=== PATIENT | male | born 1955 | race Hispanic/Latino ===

== ENCOUNTER 2017-10-29 10:39 | Inpatient (IN) | payer MEDICARE ==
[2017-10-29] MEDS ORDERED: NACL 0.9% 500 ML 500 ML IV ONE ×3 (11:35→16:00)
[2017-10-29 12:48] LABS: Basophils % (Auto) 0.2 % (0.0-1.8); Eosinophils # (Auto) 0.1 K/mm3 (0.0-0.4); Eosinophils % (Auto) 0.8 % (0.0-4.3); Hematocrit 33.8 % (35.5-45.6); Hemoglobin 11.1 gm/dl (11.8-15.2); Lymphocytes # (Auto) 0.8 K/mm3 (1.2-5.4); Lymphocytes % (Auto) 7.8 % (13.4-35.0); Mean Corpuscular HGB Conc 33 % (32-34); Mean Corpuscular Hemoglobin 30 pg (28-32); Mean Corpuscular Volume 91 fl (84-94); Monocytes # (Auto) 0.5 K/mm3 (0.0-0.8); Monocytes % (Auto) 5.4 % (0.0-7.3); Platelet Count 256 K/mm3 (140-440); Red Blood Count 3.72 M/mm3 (3.65-5.03); Red Cell Distribution Width 14.2 % (13.2-15.2)
[2017-10-29 12:58] LABS: INR 1.11 (0.87-1.13)
[2017-10-29 12:59] LABS: Partial Thromboplastin Time 26.9 Sec. (24.2-36.6)
[2017-10-29 13:00] LABS: Albumin 3.5 g/dL (3.9-5); Calcium 9.3 mg/dL (8.4-10.2)
[2017-10-29] MEDS ORDERED: D5/0.45NS 1,000 ML IV SCH (13:00)
[2017-10-29] MEDS ORDERED: FLUTICASONE FUROATE INHALATION PRN (13:40)
[2017-10-29] MEDS: FLAGYL 500 MG/100 ML 500 MG/100 ML BAG IV SCH ×2 (13:44→23:14)
[2017-10-29] MEDS ORDERED: LOVENOX SUB-Q SCH ×2 (14:00)
--- NOTE | 2017-10-29 14:30 | History and Physical Report ---
History of Present Illness Date of examination: 10/29/17 Date of admission: 10/29/17 11:19 Medications and Allergies Allergies Allergy/AdvReac Type Severity Reaction Status Date / Time Penicillins AdvReac Unknown Verified 10/29/17 10:43 Home Medications Medication Instructions Recorded Confirmed Last Taken Type Acetaminophen 650 mg PO Q12H PRN 10/29/17 10/29/17 10/28/17 History Apixaban [Eliquis] 5 mg PO BID 10/29/17 10/29/17 10/28/17 History AtorvaSTATin 20 mg PO QHS 10/29/17 10/29/17 10/28/17 History Cholecalciferol Vit D3 50,000 units PO DAILY 10/29/17 10/29/17 10/28/17 History Desyrel 50 mg PO QHS 10/29/17 10/29/17 10/28/17 History Escitalopram Oxalate [Lexapro] 20 mg PO DAILY 10/29/17 10/29/17 10/28/17 History Fluticasone Furoate [Flonase 1 spray INHALATION DAILY PRN 10/29/17 10/29/1708/10 History Sensimist] Furosemide [Lasix TAB] 40 mg PO BID 10/29/17 10/29/17 10/28/17 History HYDROcodone/APAP 7.5-325 [[place] 1 tab PO Q6H PRN 10/29/17 10/29/17 10/28/17 History 7.5-325 mg TAB] Lopressor TAB 50 mg PO BID 10/29/17 10/29/17 10/28/17 History Losartan Potassium 100 mg PO DAILY 10/29/17 10/29/17 10/28/17 History Miralax 3350 17 gm PO DAILY PRN 10/29/17 10/29/17 10/28/17 History Multivit,Stress Formula/Zinc 1 tab PO DAILY 10/29/17 10/29/17 10/28/17 History [Stress Formula with Zinc Tab] Omeprazole Magnesium 20 mg PO DAILY 10/29/17 10/29/17 10/28/17 History Potassium Chloride 20 meq PO DAILY 10/29/17 10/29/17 10/28/17 History Pregabalin [Lyrica] 75 mg PO BID 10/29/17 10/29/17 10/28/17 History Zofran TAB 4 mg PO Q8H PRN 10/29/17 10/29/17 10/28/17 History metFORMIN [Glucophage] 1,000 mg PO BID 10/29/17 10/29/17 10/28/17 History Active Meds: Active Medications Enoxaparin Sodium (Lovenox) 30 mg SUB-Q QDAY [facility] Famotidine (Pepcid) 20 mg IV QDAY [facility] Metronidazole (Flagyl 500 Mg/100 Ml) 500 mg in 100 mls @ 100 mls/hr IV Q8HR [facility] ; Protocol Last Admin: 10/29/17 13:44 Dose: 100 mls/hr Dextrose/Sodium Chloride (D5/0.45ns) 1,000 mls @ 150 mls/hr IV DIRECT [facility] Miscellaneous Medication (Fluticasone Furoate [Flonase Sensimist]) 1 spray INHALATION DAILY PRN PRN Reason: Congestion Results - Labs CBC & Chem 7: 10/29/17 12:05 10/29/17 12:05 Labs: Abnormal lab results 10/29/17 10/29/17 10/29/17 Range/Units 11:44 12:05 12:05 Hgb 11.1 L (11.8-15.2) gm/dl Hct 33.8 L (35.5-45.6) % Lymph % (Auto) 7.8 L (13.4-35.0) % Lymph # 0.8 L (1.2-5.4) K/mm3 Seg Neutrophils % 85.8 H (40.0-70.0) % Seg Neutrophils # 8.4 H (1.8-7.7) K/mm3 Chloride 97.6 L (98-107) mmol/L BUN 60 H (9-20) mg/dL Creatinine 4.5 H (0.8-1.5) mg/dL Glucose 108 H (75-100) mg/dL POC Glucose 129 H (70-105) Magnesium 1.50 L (1.7-2.3) mg/dL Total Protein 6.2 L (6.3-8.2) g/dL Albumin 3.5 L (3.9-5) g/dL
[2017-10-29] MEDS: PEPCID IV SCH (16:00)
[2017-10-29] MEDS: D5/0.45NS 1,000 ML IV SCH ×2 (16:02→23:13)
[2017-10-29] MEDS ORDERED: [UNRECOGNIZED DRUG - OTHER] PO PRN (17:23)
[2017-10-29] MEDS ORDERED: ZINC PO SCH (17:30)
[2017-10-29] MEDS ORDERED: CHOLECALCIFEROL PO SCH (17:30)
[2017-10-29] MEDS ORDERED: NON-FORMULARY (Escitalopram Oxalate [Lexapro] 20 MG) PO SCH (17:30)
[2017-10-29] MEDS ORDERED: MULTIVIT STRESS FORMULA PO SCH (17:30)
[2017-10-29] MEDS ORDERED: NON-FORMULARY (Losartan Potassium [Losartan Potassium] 100 MG) PO SCH (17:30)
[2017-10-29] MEDS ORDERED: MIRALAX 3350 PO PRN (17:50)
--- NOTE | 2017-10-29 20:01 | History and Physical Report ---
History of Present Illness Date of examination: 10/29/17 Date of admission: 10/29/17 11:19 Chief complaint: Watery diarrhea 2days History of present illness: Patient is a 61-year-old gentleman who is mentally challenged and lives a in a the personal group home was brought to my office today by his caregivers because of profuse watery diarrhea for 2 days. While in my office, patient started shaking all over. Having difficulty in ambulating as he was too weak. SBP wasin the 90s. Directed admission was ordered. EMS was called in. Patient is unable to give any history. Caregivers were not available at time of this evaluation. Initial laboratory studies in hospital showed a BUN of 60 and creatinine of 4.5. No baseline data available to compare with the current data. Glucose was elevated at 129 and 148 respectively. Magnesium was 1.5 and albumin was 3.5. Patient was commenced on 1 L of normal saline bolus as he obviously has acute renal failure with normal. Urinalysis and kidney ultrasounds were ordered. Nephrology consult obtained. Past History Past Medical History: other (mental retardation) Social history: denies: smoking, alcohol abuse, prescription drug abuse Family history: no significant family history Medications and Allergies Allergies Allergy/AdvReac Type Severity Reaction Status Date / Time Penicillins AdvReac Unknown Verified 10/29/17 10:43 Home Medications Medication Instructions Recorded Confirmed Last Taken Type Acetaminophen 650 mg PO Q12H PRN 10/29/17 10/29/17 10/28/17 History Apixaban [Eliquis] 5 mg PO BID 10/29/17 10/29/17 10/28/17 History AtorvaSTATin 20 mg PO QHS 10/29/17 10/29/17 10/28/17 History Cholecalciferol Vit D3 50,000 units PO DAILY 10/29/17 10/29/17 10/28/17 History Desyrel 50 mg PO QHS 10/29/17 10/29/17 10/28/17 History Escitalopram Oxalate [Lexapro] 20 mg PO DAILY 10/29/17 10/29/17 10/28/17 History Fluticasone Furoate [Flonase 1 spray INHALATION DAILY PRN 10/29/17 10/29/1708/10 History Sensimist] Furosemide [Lasix TAB] 40 mg PO BID 10/29/17 10/29/17 10/28/17 History HYDROcodone/APAP 7.5-325 [[place] 1 tab PO Q6H PRN 10/29/17 10/29/17 10/28/17 History 7.5-325 mg TAB] Lopressor TAB 50 mg PO BID 10/29/17 10/29/17 10/28/17 History Losartan Potassium 100 mg PO DAILY 10/29/17 10/29/17 10/28/17 History Miralax 3350 17 gm PO DAILY PRN 10/29/17 10/29/17 10/28/17 History Multivit,Stress Formula/Zinc 1 tab PO DAILY 10/29/17 10/29/17 10/28/17 History [Stress Formula with Zinc Tab] Omeprazole Magnesium 20 mg PO DAILY 10/29/17 10/29/17 10/28/17 History Potassium Chloride 20 meq PO DAILY 10/29/17 10/29/17 10/28/17 History Pregabalin [Lyrica] 75 mg PO BID 10/29/17 10/29/17 10/28/17 History Zofran TAB 4 mg PO Q8H PRN 10/29/17 10/29/17 10/28/17 History metFORMIN [Glucophage] 1,000 mg PO BID 10/29/17 10/29/17 10/28/17 History Active Meds: Active Medications Acetaminophen/Hydrocodone Bitart ([place] 7.5/325) 1 each PO Q6H PRN PRN Reason: Pain , Severe (7-10) Apixaban (Eliquis) 5 mg PO BID [facility]; Protocol Atorvastatin Calcium (Lipitor) 20 mg PO QHS [facility] Ergocalciferol (Vitamin D2) 50,000 unit PO Adames [facility] Escitalopram Oxalate (Lexapro) 20 mg PO DAILY [facility] Famotidine (Pepcid) 20 mg IV QDAY ERI[facility] Last Admin: 10/29/17 16:00 Dose: 20 mg Fluticasone Propionate (Flonase) 100 mcg NS QDAY PRN PRN Reason: NASAL ALLERGY Furosemide (Lasix) 40 mg PO BID [facility] Metronidazole (Flagyl 500 Mg/100 Ml) 500 mg in 100 mls @ 100 mls/hr IV Q8HR [facility] ; Protocol Last Admin: 10/29/17 13:44 Dose: 100 mls/hr Dextrose/Sodium Chloride (D5/0.45ns) 1,000 mls @ 150 mls/hr IV DIRECT ERIK Last Admin: 10/29/17 16:02 Dose: 150 mls/hr Losartan Potassium (Cozaar) 100 mg PO QDAY [facility] Metoprolol Tartrate (Lopressor) 50 mg PO BID [facility] Multivitamins (Theragran Tab) 1 each PO DAILY [facility] Polyethylene Glycol (Miralax 3350) 17 gm PO QDAY PRN PRN Reason: Constipation Pregabalin (Lyrica) 75 mg PO BID [facility] Trazodone HCl (Desyrel) 50 mg PO QHS [facility] Review of Systems ROS unobtainable: due to mental status Exam - Physical Exam Narrative exam: Constitutional: Obese. Mentally challenged. Well-nourished well-developed. In no distress Head: Normocephalic atraumatic Eyes: Pupils are equal round and reactive to light Nose: No enlarged turbinates, no septal deviation. Mouth: Moist mucous membranes. Neck: Supple no thyromegaly. No bruit. No JVD Heart: Regular rate and rhythm, S1-S2 abnormal. No rubs murmurs or gallop Lungs: Clear to auscultation bilaterally no rales or rhonchi Abdomen: Soft, nontender. Bowel sound are present. Extremities: No edema no cyanosis and no clubbing. Neuro: Alert oriented Oriented x3. No focal sensory or motor deficit. Skin: Cellulitis lower extremities .stages 1-2 sacral decubitus ulcers. Psychiatry: Euthymic. Calm. - Constitutional Vitals: Temp Pulse Resp BP Pulse Ox 98.5 F 68 20 97/40 100 10/29/17 17:28 10/29/17 17:28 10/29/17 17:28 10/29/17 17:28 10/29/17 17:28 Results - Labs CBC & Chem 7: 10/29/17 12:05 10/29/17 12:05 Labs: Abnormal lab results 10/29/17 10/29/17 10/29/17 Range/Units 11:44 12:05 12:05 Hgb 11.1 L (11.8-15.2) gm/dl Hct 33.8 L (35.5-45.6) % Lymph % (Auto) 7.8 L (13.4-35.0) % Lymph # 0.8 L (1.2-5.4) K/mm3 Seg Neutrophils % 85.8 H (40.0-70.0) % Seg Neutrophils # 8.4 H (1.8-7.7) K/mm3 Chloride 97.6 L (98-107) mmol/L BUN 60 H (9-20) mg/dL Creatinine 4.5 H (0.8-1.5) mg/dL Glucose 108 H (75-100) mg/dL POC Glucose 129 H (70-105) Magnesium 1.50 L (1.7-2.3) mg/dL Total Protein 6.2 L (6.3-8.2) g/dL Albumin 3.5 L (3.9-5) g/dL 10/29/17 Range/Units 16:50 Hgb (11.8-15.2) gm/dl Hct (35.5-45.6) % Lymph % (Auto) (13.4-35.0) % Lymph # (1.2-5.4) K/mm3 Seg Neutrophils % (40.0-70.0) % Seg Neutrophils # (1.8-7.7) K/mm3 Chloride (98-107) mmol/L BUN (9-20) mg/dL Creatinine (0.8-1.5) mg/dL Glucose (75-100) mg/dL POC Glucose 142 H (70-105) Magnesium (1.7-2.3) mg/dL Total Protein (6.3-8.2) g/dL Albumin (3.9-5) g/dL Assessment and Plan Admit med - Acute Renal Failure, with prerenal azoteemia Obtain UA, Renal US iv hydration Cautiously Given pt's med list it seem pt had a history of CHF Will check BNP Cellulitis both LE iv cefapine - Possible h/o chf Obtain BMP. Continue beta blockers, Hold ACEI and diuretics because of acute renal failure.
[2017-10-29] MEDS ORDERED: LOPRESSOR 50 MG PO SCH (22:00)
[2017-10-29] MEDS ORDERED: NON-FORMULARY (Atorvastatin 20 MG) PO SCH (22:00)
[2017-10-29] MEDS ORDERED: DESYREL 50 MG PO SCH (22:00)
[2017-10-29] MEDS: LYRICA PO SCH (23:17)
[2017-10-29] MEDS: DESYREL PO SCH (23:17)
[2017-10-29] MEDS: ELIQUIS PO SCH (23:17)
[2017-10-29] MEDS: LASIX PO SCH (23:18)
[2017-10-29] MEDS: LEXAPRO PO SCH (23:19)
[2017-10-29] MEDS: COZAAR PO SCH (23:20)
[2017-10-29] MEDS: LOPRESSOR PO SCH (23:22)
[2017-10-30 00:36] LABS: Bilirubin,Urine NEG (Negative); Blood,Urine NEG (Negative); Color,Urine Yellow (Yellow); Mucus,Urine FEW /HPF; Protein,Urine <15 mg/dL mg/dL (Negative); RBC,Urine < 1.0 /HPF (0.0-6.0); Urobilinogen,Urine < 2.0 mg/dL (<2.0)
[2017-10-30] MEDS: FLAGYL 500 MG/100 ML 500 MG/100 ML BAG IV SCH ×3 (05:55→21:49)
--- NOTE | 2017-10-30 07:32 | Ultrasound Report ---
FINAL REPORT PROCEDURE: US RENAL BILAT TECHNIQUE: Real-time sonography in multiple planes of the kidneys, ureters and urinary bladder was performed with image documentation. CPT 72914 HISTORY: acute renal failure COMPARISON: No prior studies are available for comparison. FINDINGS: RIGHT kidney: Normal echotexture. No focal renal mass, calculus, or hydronephrosis. Length: 10.8 cm. LEFT kidney: Normal echotexture. No focal renal mass, calculus, or hydronephrosis. Length: 11.8cm. Bladder: Normal. IMPRESSION: Normal Examination.
--- NOTE | 2017-10-30 08:14 | XRay Report ---
Chest 2 views: History: Heart failure, shortness of breath. Findings: Normal cardiomediastinal silhouette the trachea is midline. Minimal blunting of the right and left CP angle from pleural thickening. Linear densities right lower lobe suggestive discoid atelectasis or pleural thickening along the horizontal fissure. Impression: No acute lung changes. Findings as detailed above.
[2017-10-30 09:01] LABS: Calcium 8.9 mg/dL (8.4-10.2)
--- NOTE | 2017-10-30 09:14 | Progress Note ---
Assessment and Plan - Acute Renal Failure, with prerenal azoteemia Obtain UA, Renal US iv hydration Cautiously Given pt's med list it seem pt had a history of CHF Will check BNP - Cellulitis both LE iv cefapime - Sacral decubitous ulcer - Possible h/o chf Obtain BNP. Continue beta blockers, Hold ACEI and diuretics because of acute renal failure. Subjective Date of service: 10/30/17 Principal diagnosis: Acute renal failure, Interval history: Pt seen and examine. in no acute distress. No fever Objective - Exam Narrative Exam: Constitutional: Obese. Mentally challenged. Well-nourished well-developed. In no distress Head: Normocephalic atraumatic Eyes: Pupils are equal round and reactive to light Nose: No enlarged turbinates, no septal deviation. Mouth: Moist mucous membranes. Neck: Supple no thyromegaly. No bruit. No JVD Heart: Regular rate and rhythm, S1-S2 abnormal. No rubs murmurs or gallop Lungs: Clear to auscultation bilaterally no rales or rhonchi Abdomen: Soft, nontender. Bowel sound are present. Extremities: No edema no cyanosis and no clubbing. Neuro: Alert oriented Oriented x3. No focal sensory or motor deficit. Skin: Cellulitis lower extremities. stages 1-2 sacral decubitous ulcers. Psychiatry: Euthymic. Calm. - Constitutional Vitals: Vital Signs - 12hr 10/29/17 10/29/17 10/29/17 23:05 23:20 23:22 Temperature Pulse Rate 64 64 64 Respiratory Rate Blood Pressure 91/42 91/42 Blood Pressure 91/42 [Left] O2 Sat by Pulse Oximetry 10/29/17 10/30/17 23:29 05:57 Temperature 97.9 F 97.6 F Pulse Rate 65 64 Respiratory 18 18 Rate Blood Pressure 100/42 105/48 Blood Pressure [Left] O2 Sat by Pulse 98 96 Oximetry - Labs CBC & Chem 7: 10/29/17 12:05 10/30/17 08:26 Labs: Abnormal lab results 10/29/17 10/29/17 10/29/17 Range/Units 11:44 12:05 12:05 Hgb 11.1 L (11.8-15.2) gm/dl Hct 33.8 L (35.5-45.6) % Lymph % (Auto) 7.8 L (13.4-35.0) % Lymph # 0.8 L (1.2-5.4) K/mm3 Seg Neutrophils % 85.8 H (40.0-70.0) % Seg Neutrophils # 8.4 H (1.8-7.7) K/mm3 Chloride 97.6 L (98-107) mmol/L BUN 60 H (9-20) mg/dL Creatinine 4.5 H (0.8-1.5) mg/dL Glucose 108 H (75-100) mg/dL POC Glucose 129 H (70-105) Magnesium 1.50 L (1.7-2.3) mg/dL Total Protein 6.2 L (6.3-8.2) g/dL Albumin 3.5 L (3.9-5) g/dL 10/29/17 10/29/17 10/30/17 Range/Units 16:50 21:41 08:26 Hgb (11.8-15.2) gm/dl Hct (35.5-45.6) % Lymph % (Auto) (13.4-35.0) % Lymph # (1.2-5.4) K/mm3 Seg Neutrophils % (40.0-70.0) % Seg Neutrophils # (1.8-7.7) K/mm3 Chloride (98-107) mmol/L BUN 48 H (9-20) mg/dL Creatinine 2.9 H (0.8-1.5) mg/dL Glucose 103 H (75-100) mg/dL POC Glucose 142 H 122 H (70-105) Magnesium (1.7-2.3) mg/dL Total Protein (6.3-8.2) g/dL Albumin (3.9-5) g/dL 10/30/17 Range/Units 08:52 Hgb (11.8-15.2) gm/dl Hct (35.5-45.6) % Lymph % (Auto) (13.4-35.0) % Lymph # (1.2-5.4) K/mm3 Seg Neutrophils % (40.0-70.0) % Seg Neutrophils # (1.8-7.7) K/mm3 Chloride (98-107) mmol/L BUN (9-20) mg/dL Creatinine (0.8-1.5) mg/dL Glucose (75-100) mg/dL POC Glucose 112 H (70-105) Magnesium (1.7-2.3) mg/dL Total Protein (6.3-8.2) g/dL Albumin (3.9-5) g/dL
--- NOTE | 2017-10-30 10:43 | Consultation ---
History of Present Illness - Reason for Consult Consult date: 10/30/17 acute renal failure Requesting physician: PAUL MERCER - History of Present Illness This is a 61yo M with PMHs of mental illness, lives a in a the personal fdc, who presented to the ER after was seen at his PCP's ( Dr Mercer) office on 10/29 for complaints of profuse watery diarrhea for 2 days. pt was noted to be hypotensive with SBP in the 90s and pt was admitted directly for IVF therapy. Initial labs showed a BUN/Cr of 60/4.5 for which renal consult is requested. Pt does not report any h/o previous CKD, no recent NSAIDs or IV exposure reported. Past History Past Medical History: other (mental retardation) Social history: denies: smoking, alcohol abuse, prescription drug abuse Family history: no significant family history Medications and Allergies Allergies Allergy/AdvReac Type Severity Reaction Status Date / Time Penicillins AdvReac Unknown Verified 10/29/17 10:43 Home Medications Medication Instructions Recorded Confirmed Last Taken Type Acetaminophen 650 mg PO Q12H PRN 10/29/17 10/29/17 10/28/17 History Apixaban [Eliquis] 5 mg PO BID 10/29/17 10/29/17 10/28/17 History AtorvaSTATin 20 mg PO QHS 10/29/17 10/29/17 10/28/17 History Cholecalciferol Vit D3 50,000 units PO DAILY 10/29/17 10/29/17 10/28/17 History Desyrel 50 mg PO QHS 10/29/17 10/29/17 10/28/17 History Escitalopram Oxalate [Lexapro] 20 mg PO DAILY 10/29/17 10/29/17 10/28/17 History Fluticasone Furoate [Flonase 1 spray INHALATION DAILY PRN 10/29/17 10/29/1708/10 History Sensimist] Furosemide [Lasix TAB] 40 mg PO BID 10/29/17 10/29/17 10/28/17 History HYDROcodone/APAP 7.5-325 [[place] 1 tab PO Q6H PRN 10/29/17 10/29/17 10/28/17 History 7.5-325 mg TAB] Lopressor TAB 50 mg PO BID 10/29/17 10/29/17 10/28/17 History Losartan Potassium 100 mg PO DAILY 10/29/17 10/29/17 10/28/17 History Miralax 3350 17 gm PO DAILY PRN 10/29/17 10/29/17 10/28/17 History Multivit,Stress Formula/Zinc 1 tab PO DAILY 10/29/17 10/29/17 10/28/17 History [Stress Formula with Zinc Tab] Omeprazole Magnesium 20 mg PO DAILY 10/29/17 10/29/17 10/28/17 History Potassium Chloride 20 meq PO DAILY 10/29/17 10/29/17 10/28/17 History Pregabalin [Lyrica] 75 mg PO BID 10/29/17 10/29/17 10/28/17 History Zofran TAB 4 mg PO Q8H PRN 10/29/17 10/29/17 10/28/17 History metFORMIN [Glucophage] 1,000 mg PO BID 10/29/17 10/29/17 10/28/17 History Active Meds: Active Medications Acetaminophen/Hydrocodone Bitart ([place] 7.5/325) 1 each PO Q6H PRN PRN Reason: Pain , Severe (7-10) Apixaban (Eliquis) 5 mg PO BID [facility]; Protocol Last Admin: 10/29/17 23:17 Dose: 5 mg Atorvastatin Calcium (Lipitor) 20 mg PO QHS [facility] Last Admin: 10/29/17 23:14 Dose: 20 mg Ergocalciferol (Vitamin D2) 50,[address] [facility] Escitalopram Oxalate (Lexapro) 20 mg PO DAILY [facility] Last Admin: 10/29/17 23:19 Dose: Not Given Famotidine (Pepcid) 20 mg IV QDAY [facility] Last Admin: 10/29/17 16:00 Dose: 20 mg Fluticasone Propionate (Flonase) 100 mcg NS QDAY PRN PRN Reason: NASAL ALLERGY Furosemide (Lasix) 40 mg PO BID [facility] Last Admin: 10/29/17 23:18 Dose: 40 mg Metronidazole (Flagyl 500 Mg/100 Ml) 500 mg in 100 mls @ 100 mls/hr IV Q8HR [facility] ; Protocol Last Admin: 10/30/17 05:55 Dose: 100 mls/hr Dextrose/Sodium Chloride (D5/0.45ns) 1,000 mls @ 75 mls/hr IV DIRECT [facility] Losartan Potassium (Cozaar) 100 mg PO QDAY [facility] Last Admin: 10/29/17 23:20 Dose: Not Given Metoprolol Tartrate (Lopressor) 50 mg PO BID [facility] Last Admin: 10/29/17 23:22 Dose: Not Given Multivitamins (Theragran Tab) 1 each PO DAILY [facility] Polyethylene Glycol (Miralax 3350) 17 gm PO QDAY PRN PRN Reason: Constipation Pregabalin (Lyrica) 75 mg PO BID [facility] Last Admin: 10/29/17 23:17 Dose: 75 mg Trazodone HCl (Desyrel) 50 mg PO QHS [facility] Last Admin: 10/29/17 23:17 Dose: 50 mg Exam - Vital Signs Vital signs: Vital Signs Temp Pulse Resp BP Pulse Ox 98.1 F 75 20 85/36 90 10/29/17 12:04 10/29/17 12:04 10/29/17 12:04 10/29/17 12:04 10/29/17 12:04 - General Appearance General appearance: well-developed, well-nourished, appears stated age, obese EENT: ATNC, PERRL, mucous membranes moist Neck: Present: neck supple Respiratory: Clear to Ascultation Heart: regular, S1S2 Gastrointestinal: Present: normoactive bowel sounds Integumentary: no rash, other (no edema ) Neurologic: no focal deficit, alert and oriented x3, strength 5/5, CN 3-12 intact Psychiatric: mood/affect appropriate, cooperative Results - Lab Results 10/29/17 12:05 10/30/17 08:26 Most recent lab results Calcium 8.9 mg/dL (8.4-10.2) 10/30/17 08:26 Phosphorus 4.20 mg/dL (2.5-4.5) 10/29/17 12:05 Magnesium 1.50 mg/dL (1.7-2.3) L 10/29/17 12:05 Assessment and Plan - Patient Problems (1) Acute kidney injury Current Visit: Yes Status: Acute Plan to address problem: suspect pre-renal azotemia in the setting of volume depletion/hypotension. ATN cannot be ruled out. Urine studies show no evidence of hematuria/proteinuria, renal US unremarkable. AVoid nephrotoxins, NSAIDs, IV contrast Cr trending down on IVF, cont d51/2 at 75ml/hr will monitor lytes and renal parameters closely and make further recommendations (2) Dehydration Current Visit: Yes Status: Acute Plan to address problem: cont IVF (3) Diarrhea Current Visit: Yes Status: Acute Plan to address problem: check stool Cx, O&P, leukocytes (4) Hypotension Current Visit: Yes Status: Acute Plan to address problem: hold BP meds, cont IVF
[2017-10-30] MEDS: COZAAR PO SCH (11:17)
[2017-10-30] MEDS: LOPRESSOR PO SCH ×2 (11:18→21:48)
[2017-10-30] MEDS: LEXAPRO PO SCH (11:19)
[2017-10-30] MEDS: LYRICA PO SCH ×2 (11:20→21:50)
[2017-10-30] MEDS: PEPCID IV SCH (11:21)
[2017-10-30] MEDS: LASIX PO SCH ×2 (11:21→21:48)
[2017-10-30] MEDS: THERAGRAN Tab PO SCH (11:21)
[2017-10-30] MEDS: ELIQUIS PO SCH ×2 (11:21→21:48)
[2017-10-30] MEDS: FLONASE NS PRN ×2 (14:19→16:41)
[2017-10-30] MEDS: D5/0.45NS 1,000 ML IV SCH (16:42)
[2017-10-30] MEDS: DESYREL PO SCH (21:47)
[2017-10-30] MEDS: NORCO 7.5/325 PO PRN (21:49)
[2017-10-31] MEDS: D5/0.45NS 1,000 ML IV SCH ×2 (06:53→21:05)
[2017-10-31] MEDS: FLAGYL 500 MG/100 ML 500 MG/100 ML BAG IV SCH (06:53)
[2017-10-31] MEDS: NORCO 7.5/325 PO PRN (09:22)
[2017-10-31] MEDS: THERAGRAN Tab PO SCH (09:23)
[2017-10-31] MEDS: LYRICA PO SCH ×2 (09:23→21:03)
[2017-10-31] MEDS: COZAAR PO SCH (09:23)
[2017-10-31] MEDS: ELIQUIS PO SCH ×2 (09:23→21:03)
[2017-10-31] MEDS: LEXAPRO PO SCH (09:23)
[2017-10-31] MEDS: LOPRESSOR PO SCH ×2 (09:23→22:33)
[2017-10-31] MEDS: LASIX PO SCH (09:24)
[2017-10-31] MEDS: FLONASE NS PRN (09:24)
[2017-10-31] MEDS: PEPCID PO SCH (09:24)
--- NOTE | 2017-10-31 12:02 | Progress Note ---
Assessment and Plan - Patient Problems (1) Acute kidney injury Current Visit: Yes Status: Acute Plan to address problem: KAILEE due to pre-renal azotemia in the setting of volume depletion/hypotension. Urine studies show no evidence of hematuria/proteinuria, renal US unremarkable. renal function improving on IVF Avoid nephrotoxins, NSAIDs, IV contrast (2) Dehydration Current Visit: Yes Status: Acute Plan to address problem: cont IVF (3) Diarrhea Current Visit: Yes Status: Acute Plan to address problem: check stool Cx, O&P, leukocytes (4) Hypotension Current Visit: Yes Status: Acute Plan to address problem: hold BP meds, cont IVF Subjective Date of service: 10/31/17 Principal diagnosis: Acute renal failure, Interval history: Pt awake ,alert, in NAD Objective - Vital Signs Vital signs: Vital Signs - 12hr 10/31/17 05:51 Temperature 97.9 F Pulse Rate 60 Respiratory 16 Rate Blood Pressure 111/46 O2 Sat by Pulse 97 Oximetry - General Appearance General appearance: well-developed, well-nourished, appears stated age EENT: ATNC, PERRL, mucous membranes moist Neck: no JVD Respiratory: Present: Clear to Ascultation Cardiology: regular, S1S2 Gastrointestinal: normoactive bowel sounds Integumentary: no rash, other (no edema ) Neurologic: no focal deficit, alert and oriented x3, strength 5/5, CN 3-12 intact Psychiatric: mood/affect appropriate, cooperative - Lab 10/29/17 12:05 10/31/17 09:22 Most recent lab results Calcium 9.0 mg/dL (8.4-10.2) 10/31/17 09:22 Phosphorus 4.20 mg/dL (2.5-4.5) 10/29/17 12:05 Magnesium 1.50 mg/dL (1.7-2.3) L 10/29/17 12:05
--- NOTE | 2017-10-31 12:39 | Progress Note ---
Assessment and Plan - Acute Renal Failure, with prerenal azotemia - imorving with iv hydration UA, Renal US - unremartkable Continue with hydration BNP - nl. No CHF - Cellulitis both LE iv cefapime - Sacral decubitous ulcer - Pre diabetic Consistent CHO diet - DVT PPx with Lovenox Subjective Date of service: 10/31/17 Principal diagnosis: Acute renal failure, Interval history: Pt seen and examine. in no acute distress. No fever. reviewd lab Objective - Exam Narrative Exam: Constitutional: Obese. Mentally challenged. Well-nourished well-developed. In no distress Head: Normocephalic atraumatic Eyes: Pupils are equal round and reactive to light Nose: No enlarged turbinates, no septal deviation. Mouth: Moist mucous membranes. Neck: Supple no thyromegaly. No bruit. No JVD Heart: Regular rate and rhythm, S1-S2 abnormal. No rubs murmurs or gallop Lungs: Clear to auscultation bilaterally no rales or rhonchi Abdomen: Soft, nontender. Bowel sound are present. Extremities: No edema no cyanosis and no clubbing. Neuro: Alert oriented Oriented x3. No focal sensory or motor deficit. Skin: Cellulitis lower extremities. stages 1-2 sacral decubitous ulcers. Psychiatry: Euthymic. Calm. - Constitutional Vitals: Vital Signs - 12hr 10/31/17 05:51 Temperature 97.9 F Pulse Rate 60 Respiratory 16 Rate Blood Pressure 111/46 O2 Sat by Pulse 97 Oximetry - Labs CBC & Chem 7: 10/29/17 12:05 10/31/17 09:22 Labs: Abnormal lab results 10/30/17 10/30/17 10/31/17 Range/Units 17:43 21:52 09:22 BUN 30 H (9-20) mg/dL Creatinine 1.7 H (0.8-1.5) mg/dL POC Glucose 148 H 129 H (70-105) 10/31/17 Range/Units 11:49 BUN (9-20) mg/dL Creatinine (0.8-1.5) mg/dL POC Glucose 135 H (70-105)
[2017-10-31] MEDS: FLAGYL PO SCH ×2 (15:13→21:03)
[2017-10-31] MEDS: DESYREL PO SCH (21:04)
[2017-11-01] MEDS: FLAGYL PO SCH ×3 (05:53→21:28)
--- NOTE | 2017-11-01 09:00 | Progress Note ---
Assessment and Plan - Acute Renal Failure, with prerenal azotemia - improving with iv hydration UA, Renal US - unremartkable Continue with hydration BNP - nl. No CHF - Cellulitis both LE Local wound dressing iv cefapime - Sacral decubitous ulcer Local wound care - Pre diabetic Consistent CHO diet - DVT PPx with Lovenox Subjective Date of service: 11/01/17 Principal diagnosis: Acute renal failure, cellulitis both LE Interval history: Pt seen and examine. in no acute distress. No fever. Objective - Exam Narrative Exam: Constitutional: Obese. Mentally challenged.Well-nourished well-developed. In no distress Head: Normocephalic atraumatic Eyes: Pupils are equal round and reactive to light Nose: No enlarged turbinates, no septal deviation. Mouth: Moist mucous membranes. Neck: Supple no thyromegaly. No bruit. No JVD Heart: Regular rate and rhythm, S1-S2 abnormal. No rubs murmurs or gallop Lungs: Clear to auscultation bilaterally no rales or rhonchi Abdomen: Soft, nontender. Bowel sound are present. Extremities: Cellulitis both LE No edema no clubbing. Neuro: Alert oriented Oriented x3. No focal sensory or motor deficit. Skin: Cellulitis lower extremities. stages 1-2 sacral decubitous ulcers. Psychiatry: Euthymic. Calm. - Constitutional Vitals: Vital Signs - 12hr 10/31/17 10/31/17 11/01/17 22:33 22:57 05:28 Temperature 98.3 F 98.5 F Pulse Rate 61 71 Respiratory 18 18 Rate Blood Pressure 99/58 93/38 103/55 O2 Sat by Pulse 87 94 Oximetry - Labs CBC & Chem 7: 10/29/17 12:05 10/31/17 09:22 Labs: Abnormal lab results 10/31/17 10/31/17 10/31/17 Range/Units 09:22 11:49 16:33 BUN 30 H (9-20) mg/dL Creatinine 1.7 H (0.8-1.5) mg/dL POC Glucose 135 H 131 H (70-105) 10/31/17 11/01/17 Range/Units 21:33 07:50 BUN (9-20) mg/dL Creatinine (0.8-1.5) mg/dL POC Glucose 137 H 106 H (70-105)
[2017-11-01] MEDS: LYRICA PO SCH ×2 (09:49→21:28)
[2017-11-01] MEDS: ELIQUIS PO SCH ×2 (09:49→21:28)
[2017-11-01] MEDS: LEXAPRO PO SCH (09:49)
[2017-11-01] MEDS: THERAGRAN Tab PO SCH (09:50)
[2017-11-01] MEDS: LOPRESSOR PO SCH ×2 (09:50→21:29)
[2017-11-01] MEDS: PEPCID PO SCH (09:50)
[2017-11-01] MEDS: COZAAR PO SCH (09:50)
--- NOTE | 2017-11-01 10:46 | XRay Report ---
ROUTINE CHEST, TWO VIEWS: HISTORY: Cough. The trachea, heart, mediastinal contour, lung metzger and bony thorax are unremarkable. Discoid atelectasis in the lower lung zones has resolved since 10/30/17. IMPRESSION: No acute cardiopulmonary process is identified.
[2017-11-01] MEDS: HYDROMET PO PRN ×2 (12:29→21:28)
--- NOTE | 2017-11-01 17:04 | Progress Note ---
Assessment and Plan - Patient Problems (1) Acute kidney injury Current Visit: Yes Status: Acute Plan to address problem: KAILEE due to pre-renal azotemia in the setting of volume depletion/hypotension. Urine studies show no evidence of hematuria/proteinuria, renal US unremarkable. renal function improved on IVF, now tolerating po well, d/beba IVF Avoid nephrotoxins, NSAIDs, IV contrast (2) Dehydration Current Visit: Yes Status: Acute Plan to address problem: improved (3) Diarrhea Current Visit: Yes Status: Acute Plan to address problem: check stool Cx, O&P, leukocytes. diarrhea resolving (4) Hypotension Current Visit: Yes Status: Acute Plan to address problem: BP improved Subjective Date of service: 11/01/17 Principal diagnosis: Acute renal failure, cellulitis both LE Interval history: Pt awake ,alert, in NAD Objective - Vital Signs Vital signs: Vital Signs - 12hr 11/01/17 11/01/17 05:28 11:41 Temperature 98.5 F 99.2 F Pulse Rate 71 71 Respiratory 18 20 Rate Blood Pressure 103/55 118/49 O2 Sat by Pulse 94 97 Oximetry - General Appearance General appearance: well-developed, well-nourished, appears stated age, obese EENT: ATNC, PERRL, mucous membranes moist Neck: no JVD Respiratory: Present: Clear to Ascultation Cardiology: regular, S1S2 Gastrointestinal: normoactive bowel sounds, obese Integumentary: no rash, other (no edema ) Neurologic: no focal deficit, alert and oriented x3, strength 5/5, CN 3-12 intact Psychiatric: mood/affect appropriate, cooperative - Lab 10/29/17 12:05 10/31/17 09:22 Most recent lab results Calcium 9.0 mg/dL (8.4-10.2) 10/31/17 09:22 Phosphorus 4.20 mg/dL (2.5-4.5) 10/29/17 12:05 Magnesium 1.50 mg/dL (1.7-2.3) L 10/29/17 12:05
[2017-11-01] MEDS: DESYREL PO SCH (21:28)
[2017-11-02] MEDS: FLAGYL PO SCH ×2 (07:01→14:00)
[2017-11-02] MEDS: FLONASE NS PRN (09:41)
[2017-11-02] MEDS: HYDROMET PO PRN (09:41)
[2017-11-02] MEDS: ELIQUIS PO SCH (09:41)
[2017-11-02] MEDS: LYRICA PO SCH (09:42)
[2017-11-02] MEDS: PEPCID PO SCH (09:42)
[2017-11-02] MEDS: THERAGRAN Tab PO SCH (09:42)
[2017-11-02] MEDS: LOPRESSOR PO SCH (09:42)
[2017-11-02] MEDS: LEXAPRO PO SCH (09:42)
[2017-11-02] MEDS: COZAAR PO SCH (09:43)
--- NOTE | 2017-11-02 10:03 | Progress Note ---
Assessment and Plan - Acute Renal Failure, with prerenal azotemia - improving with iv hydration UA, Renal US - unremarkable Continue with hydration BNP - nl. No CHF - Cellulitis both LE Local wound dressing iv cefapime - Sacral decubitous ulcer Local wound care - Pre diabetic Consistent CHO diet - DVT PPx with Lovenox Subjective Date of service: 11/02/17 Principal diagnosis: Acute renal failure, cellulitis both LE Interval history: Pt seen and examine. In no acute distress. No fever. Cough is better Objective - Exam Narrative Exam: Constitutional: Obese. Mentally challenged.Well-nourished well-developed.In no distress Head: Normocephalic atraumatic Eyes: Pupils are equal round and reactive to light Nose: No enlarged turbinates, no septal deviation. Mouth: Moist mucous membranes. Neck: Supple no thyromegaly. No bruit. No JVD Heart: Regular rate and rhythm, S1-S2 abnormal. No rubs murmurs or gallop Lungs: Clear to auscultation bilaterally no rales or rhonchi Abdomen: Soft, nontender. Bowel sound are present. Extremities: Cellulitis both LE No edema no clubbing. Neuro: Alert oriented Oriented x3. No focal sensory or motor deficit. Skin: Cellulitis lower extremities. stages 1-2 sacral decubitous ulcers. Psychiatry: Euthymic. Calm. - Constitutional Vitals: Vital Signs - 12hr 11/01/17 11/02/17 23:38 05:46 Temperature 98.2 F 98.4 F Pulse Rate 65 61 Respiratory 20 24 Rate Blood Pressure 112/55 129/56 O2 Sat by Pulse 93 92 Oximetry - Labs CBC & Chem 7: 10/29/17 12:05 10/31/17 09:22 Labs: Abnormal lab results 11/01/17 11/01/17 11/01/17 Range/Units 11:26 16:08 22:21 POC Glucose 108 H 112 H 109 H (70-105)
--- NOTE | 2017-11-02 10:19 | Discharge Summary ---
Providers - Providers Date of Admission: 10/29/17 11:19 Date of discharge: 11/02/17 Attending physician: PAUL MERCER 10/29/17 13:32 Consult to Wound/ET Nurse [CONS] Routine Reason For Exam: wound eval 10/29/17 13:37 Consult to Physician [CONS] Routine Comment: Consulting Provider: ARINA REAL Physician Instructions: Reason For Exam: Acute renal failure Primary care physician: PAUL MERCER Hospitalization Disposition: DC-30 STILL A PATIENT Core Measure Documentation - Palliative Care Palliative Care/ Comfort Measures: Not Applicable Exam - Constitutional Vitals: Temp Pulse Resp BP Pulse Ox 98.4 F 61 24 129/56 92 11/02/17 05:46 11/02/17 05:46 11/02/17 05:46 11/02/17 05:46 11/02/17 05:46 Plan Activity: advance as tolerated, fall precautions Weight Bearing Status: Weight Bear as Tolerated Diet: regular Follow up with: PAUL MERCER MD [Primary Care Provider] - 7 Days Prescriptions: Apixaban [Eliquis] 5 mg PO BID #60 tablet AtorvaSTATin 20 mg PO QHS #30 Cholecalciferol Vit D3 50,000 units PO DAILY #30 Desyrel 50 mg PO QHS #30 Escitalopram Oxalate [Lexapro] 20 mg PO DAILY #30 tablet Fluticasone Furoate [Flonase Sensimist] 1 spray INHALATION DAILY PRN #30 spray.susp PRN Reason: Congestion Losartan Potassium 100 mg PO DAILY #30 tablet Metoprolol [Lopressor TAB] 50 mg PO BID #60 tablet Miralax 3350 17 gm PO DAILY PRN #30 PRN Reason: Constipation Omeprazole Magnesium 20 mg PO DAILY #30 Polyethylene Glycol 3350 [Miralax 3350] 17 gm PO QDAY PRN #30 powd.pack PRN Reason: Constipation Pregabalin [Lyrica] 75 mg PO BID #30 capsule traZODone [Desyrel] 50 mg PO QHS #30 tablet
[2017-11-02 10:50] LABS: BUN/Creatinine Ratio 14; Blood Urea Nitrogen 17 mg/dL (9-20); Calcium 9.1 mg/dL (8.4-10.2); Hemolysis Index 12
--- NOTE | 2017-11-02 11:46 | Progress Note ---
Assessment and Plan - Patient Problems (1) Acute kidney injury Current Visit: Yes Status: Acute Plan to address problem: KAILEE due to pre-renal azotemia in the setting of volume depletion/hypotension. improved Cr to 1.2mg/dl after IVF. stable for discharge from renal stand point (2) Dehydration Current Visit: Yes Status: Acute Plan to address problem: improved (3) Diarrhea Current Visit: Yes Status: Acute Plan to address problem: improved (4) Hypotension Current Visit: Yes Status: Acute Plan to address problem: BP improved S/p IVF Subjective Date of service: 11/02/17 Principal diagnosis: Acute renal failure, cellulitis both LE Interval history: Pt awake ,alert, in NAD Objective - Vital Signs Vital signs: Vital Signs - 12hr 11/02/17 05:46 Temperature 98.4 F Pulse Rate 61 Respiratory 24 Rate Blood Pressure 129/56 O2 Sat by Pulse 92 Oximetry - General Appearance General appearance: well-developed, well-nourished, appears stated age, obese EENT: ATNC, PERRL, mucous membranes moist Neck: no JVD Respiratory: Present: Clear to Ascultation Cardiology: regular, S1S2 Gastrointestinal: normoactive bowel sounds, obese Integumentary: no rash, other (no edema ) Neurologic: no focal deficit, alert and oriented x3, strength 5/5, CN 3-12 intact Psychiatric: mood/affect appropriate, cooperative - Lab 10/29/17 12:05 11/02/17 10:00 Most recent lab results Calcium 9.1 mg/dL (8.4-10.2) 11/02/17 10:00 Phosphorus 4.20 mg/dL (2.5-4.5) 10/29/17 12:05 Magnesium 1.50 mg/dL (1.7-2.3) L 10/29/17 12:05
[2017-11-02 13:00] VITALS: BP 110/48
[2017-11-04] MEDS ORDERED: VITAMIN D2 PO SCH (10:00)
== END 2017-11-02 15:00 | disposition home health service (06) | DRG 315 ==
LOC: UNDOADMIN 10:39 → 3A 10:39
PROVIDERS: ADMIT Family Medicine; ATTEND Family Medicine
DX: I95.9 Hypotension, unspecified (principal); N17.9 Acute kidney failure, unspecified; L03.116 Cellulitis of left lower limb; L03.115 Cellulitis of right lower limb; L89.159 Pressure ulcer of sacral region, unspecified stage; I50.9 Heart failure, unspecified; E86.9 Volume depletion, unspecified; E86.0 Dehydration; Z88.0 Allergy status to penicillin; Z79.899 Other long term (current) drug therapy
CPT/HCPCS: 36415; 71046; 76770; 80048; 80053; 81001; 82962; 83036; 83735; 83880; 84100; 85025; 85610; 85730; 87116; A9270-GY; J1650; J7040